=== PATIENT | male | born 1975 | race Caucasian/White ===

== ENCOUNTER 2017-06-23 15:41 | Emergency (ER) | payer OTHER ==
[2017-06-23 15:50] VITALS: RESP 18; TEMP 98.2
[2017-06-23] MEDS ORDERED: TDAP ADULT 0.5 ML INJ (BOOSTRIX) IM ONE (15:58)
--- NOTE | 2017-06-23 16:11 | EDPHY ---
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 Tetanus is out-of-date. No paresthesia. Occurred shortly prior to arrival. PRIMARY CARE PROVIDER: REVIEW OF SYSTEMS: A ten point review of systems was performed and is negative with the exception of the items mentioned in the HPI PHYSICAL EXAM (Prior to examination, patient consented to physical exam, hands were washed and my usual and customary physical exam procedures followed) 1) GENERAL: Well-developed, well-nourished, alert and oriented. Appears to be in no acute distress. 2) HEAD: Normocephalic 3) HEENT: sclera anicteric 4) LUNGS: Breathing comfortably. 5) SKIN: On the dorsal aspect of the right 2nd and 3rd digit distal phalanx he has superficial skin avulsion with active slow capillary like bleed. No signs of infection. Negative kanavel. 6) MUSCULOSKELETAL: Extensor and flexor function intact. 7) NEUROLOGIC: Full sensation. (Brianna Rey) Constitutional: Initial Vital Signs Temperature (C) 36.8 C 06/23/17 15:49 Heart Rate 70 06/23/17 15:49 Respiratory Rate 18 06/23/17 15:49 Blood Pressure 125/82 H 06/23/17 15:49 O2 Sat (%) 97 06/23/17 15:49 O2 Delivery Mode Room Air Allergies/Adverse Reactions: aspirin Allergy (Verified 06/23/17 15:49) latex Allergy (Verified 06/23/17 15:49) Home Medications: Medication Instructions Recorded Lisinopril 06/23/17 Simvastatin 06/23/17 MDM/Departure - MDM Procedures: Procedure: Wound management The 2nd and 3rd right digits were anesthetized using 0.5% bupivicaine without epinephrine digital nerve block. After anesthetic administered the patient was observed for a period of time and had no apparent adverse effects. The wound was cleaned, prepped, draped in normal sterile fashion and dressed with Surgicel dressing by ER staff condition. Hemostasis achieved. (Brianna Rey) Medications Given: Discontinued Medications Diphtheria/Tetanus/Acell Pertussis (Boostrix) 0.5 ml IM .ONCE ONE Stop: 06/23/17 15:59 Last Admin: 06/23/17 16:03 Dose: 0.5 ml ED Course/Re-evaluation: Tetanus updated. Given usual customary wound precautions instructions. Care of patient under supervision of secondary supervising physician Dr Hebert . ( Brianna Rey) I did not see this patient while he was in the emergency department. However his care was discussed with the PA while the patient was in the department. I agree with treatment plan and (Luis Fernando Hebert) - Depart Disposition: Home, Routine, Self-Care Clinical Impression: Avulsion of skin of finger Qualifiers: Encounter type: initial encounter Qualified Code(s): S61.209A - Unspecified open wound of unspecified finger without damage to nail, initial encounter Condition: Good Instructions: Skin Avulsion (ED) Additional Instructions: Return to the ER if you develop redness, swelling, discharge, warmth to the wound, red streaks going up your arm, or any other symptoms that concern you. Stand Alone Forms: Work Comp Follow Up Referrals: Follow-up, with your work comp provider in 2-3 days [Other] - As per Instructions
[2017-06-23 16:16] VITALS: BP 125/76; PULSE 71; O2SAT 96
== END 2017-06-23 16:53 | disposition home or self-care (01) ==
PROC: 3E0T3BZ Introduction of Anesthetic Agent into Peripheral Nerves and Plexi, Percutaneous Approach (ICD-10-PCS; principal; 2017-06-23)
DX: S61.200A Unspecified open wound of right index finger without damage to nail, initial encounter (principal); S61.202A Unspecified open wound of right middle finger without damage to nail, initial encounter; F17.200 Nicotine dependence, unspecified, uncomplicated; Z23 Encounter for immunization; Z91.040 Latex allergy status; W45.8XXA Other foreign body or object entering through skin, initial encounter; Y92.69 Other specified industrial and construction area as the place of occurrence of the external cause; Y99.0 Civilian activity done for income or pay; Y93.89 Activity, other specified